=== PATIENT | male | born 1980 | race Two or more races ===

== ENCOUNTER 2025-09-10 11:59 | Emergency (ER) | payer SELFPAY ==
[~2025-09-10] VITALS: Ht 152.4 cm; Wt 81.0 kg
--- NOTE | 2025-09-10 12:15 | ECG ---
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
[2025-09-10 12:30] VITALS: PULSE 91; RESP 15; O2SAT 98
[2025-09-10] MEDS: SODIUM CHLORIDE 0.9% 3,000 ML IV ONE (12:37)
[2025-09-10] MEDS: LORazepam 2MG/ML-1ML VIAL IV ONE ×2 (12:42→14:30)
[2025-09-10] MEDS: THIAMINE 100mg/ml INJ (200mg/2ml VIAL) IV ONE (12:42)
[2025-09-10] MEDS: ONDANSETRON HCL 4 MG/2 ML VIAL IV ONE (12:43)
--- NOTE | 2025-09-10 13:16 | ED.PDOC ---
Psychiatric HPI Comments This is a 45-year-old male who presents to the ED with a chief complaint of alcohol withdrawals. Patient states he has been binge drinking for the past x4 weeks, drinking beer and Tequila. Patient reports his last drink was last night. Patient also reports he has had a decreased appetite the past 2 weeks and is currently feeling anxious. Upon evaluation, patient is visibly shaking. Patient has no further complaints at this time and otherwise denies further associated symptoms of dizziness, any visual or auditory hallucinations, suicidal ideation, or homicidal ideation. Chief Complaint: Withdrawal Time Seen by MD: 12:20 Reviewed Notes: Medications, Allergies Information Source: Patient Mode of Arrival: Ambulatory Duration: Since onset Presents with: Anxiety, Alcohol Intoxication Associated signs and symptoms: Tremors Past Medical History PAST MEDICAL HISTORY: Denies Surgical History: Denies all surgeries Family History Family History: Unknown Social History Smoker: Non-Smoker Alcohol: Heavy Drugs: Denies Drug Use Lives In: Home Constitutional: denies: chills, diaphoresis, fatigue, fever, malaise, sweats, weakness, others EENTM: denies: blurred vision, double vision, ear bleeding, ear discharge, ear drainage, ear pain, ear ringing, eye pain, eye redness, hearing loss, mouth pain, mouth swelling, nasal discharge, nose bleeding, nose congestion, nose pain, photophobia, tearing, throat pain, throat swelling, voice changes, others Respiratory: denies: cough, hemoptysis, orthopnea, SOB at rest, shortness of breath, SOB with excertion, stridor, wheezing, others Cardiovascular: denies: chest pain, dizzy spells, diaphoresis, Dyspnea on exe rtion, edema, irregular heart beat, left arm pain, lightheadedness, palpitations, PND, syncope, others Gastrointestinal: denies: abdomen distended, abdominal pain, blood streaked bowels, constipated, diarrhea, dysphagia, difficulty swallowing, hematemesis, melena, nausea, poor appetite, poor fluid intake, rectal bleeding, rectal pain, vomiting, others Genitourinary: denies: burning, dysuria, flank pain, frequency, hematuria, incontinence, penile discharge, penile sore, pain, testicle pain, testicle swelling, urgency, others Neurological: reports: tremors; denies: dizziness, fainting, headache, left sided numbness, left sided weakness, numbness, paresthesia, pre-existing de ficit, right sided numbness, right sided weakness, seizure, speech problems, tingling, weakness, others Musculoskeletal: denies: back pain, gout, joint pain, joint swelling, muscle pain, muscle stiffness, neck pain, others Integumetry: denies: bruises, change in color, change in hair/nails, dryness, laceration, lesions, lumps, rash, wounds, others Allergic/Immunocompromised: denies: Difficulty Healing, Frequent Infections, Hives, Itching, others Hematologic/Lymphatic: denies: anemia, blood clots, easy bleeding, easy bruising, swollen glands, others Endocrine: denies: excessive hunger, excessive sweating, excessive thirst, excessive urination, flushing, intolerance to cold, intolerance to heat, unexplained weight gain, unexplained weight loss, others Psychiatric: reports: anxiety, others (ETOH intoxication); denies: bipolar disorder, depression, hopeless, panic disorder, schizophrenia, sleepless, suicidal All Other Systems: Reviewed and Negative Physical Exam General Appearance: Moderate Distress HEENT: Normal ENT Inspection, Pharynx Normal, TMs Normal Neck: Full Range of Motion, Non-Tender, Normal, Normal Inspection Respiratory: Chest Non-Tender, Lungs Clear, No Accessory Muscle Use, No Respiratory Distress, Normal Breath Sounds Cardiovascular: No Edema, No JVD, No Murmur, No Gallop, Normal Peripheral Pulses, Regular Rate/Rhythm Breast Exam: Deferred Gastrointestinal: No Organomegaly, Non Tender, No Pulsatile Mass, Normal Bowel Sounds, Soft Genitalia: Deferred Pelvic: Deferred Rectal: Deferred Extremities: No calf tenderness, Normal capillary refill, Normal inspection, No rmal range of motion, Non-tender, No pedal edema Musculoskeletal : Apperance: Normal Neurologic: Alert, 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 Was a procedure done?: No Psych Differential Dx Psych. Differential Dx: Anxiety Intoxication Differential Dx: Alcohol Withdraw Syndrome X-Ray, Labs, Meds, VS Vital Signs Date Time Temp Pulse Resp B/P (MAP) Pulse Ox O2 Delivery O2 Flow Rate FiO2 09/10/25 14:20 91 15 98 Room Air* 0 21 09/10/25 13:16 120 09/10/25 12:30 91 15 98 Room Air* 0 21 09/10/25 12:30 98.1 91 15 138/88 (105) 98 98.1 09/10/25 12:06 120 09/10/25 12:04 98.7 121 24 139/100 95 98.7 Lab Test 09/10/25 14:13 09/10/25 12:47 Range/Units Urine Color Colorless Yellow Urine Clarity Clear Clear Urine pH 8.0 5.0-9.0 Urine Specific [place] 1.008 1.001-1.035 Urine Protein Negative Negative Urine Ketones Negative Negative Urine Blood Negative Negative /uL Urine Nitrite Negative Negative Urine Bilirubin Negative Negative Urine Urobilinogen Normal Negative mg/dL Urine Leukocyte Esterase Negative Negative /uL Urine RBC 1 0 - 3 /hpf Urine Microscopic WBC < 1 0-3 /HPF Urine Squamous Epithelial Cells None seen <5 /hpf Urine Bacteria None seen None Seen /hpf Urine Glucose Normal Normal mg/dL Urine Opiates Screen Neg NEGATIVE Urine Fentanyl Screen Neg NEGATIVE Urine Barbiturates Screen Pos NEGATIVE Urine Phencyclidine Screen Neg NEGATIVE Urine Amphetamines Screen Neg NEGATIVE Urine Benzodiazepines Screen Pos NEGATIVE Urine Cocaine Screen Neg NEGATIVE Urine Cannabinoids Screen Neg NEGATIVE Sodium Level 141 136-145 mmol/L Potassium Level 3.6 3.5-5.1 mmol/L Chloride Level 103 98-107 mmol/L Carbon Dioxide Level 25 20-31 mmol/L Anion Gap 13 5-15 Blood Urea Nitrogen < 5 L 9-23 mg/dL Creatinine 0.63 L 0.700-1.30 mg/dL Glomerular Filtration Rate Calc 120 >90 mL/min BUN/Creatinine Ratio 7.9 L 10.0-20.0 Serum Glucose 109 H 74-106 mg/dL Calcium Level 8.6 L 8.7-10.4 mg/dL Plasma/Serum Blood Alcohol 180.5 H <10 mg/dL Current Medications Medications (Trade) Dose Ordered Sig/Kathrin Route Start Time Stop Time Status Last Admin Sodium Chloride 3,000 ml @ 1,000 mls/hr Q3H ONCE IV 09/10/25 12:30 09/10/25 15:29 09/10/25 12:37 Thiamine HCl 100 mg ONCE ONCE IV 09/10/25 12:30 09/10/25 12:31 DC 09/10/25 12:42 Lorazepam (Ativan Inj) 1 mg ONCE ONCE IV 09/10/25 12:30 09/10/25 12:31 DC 09/10/25 12:42 Ondansetron HCl (Zofran) 4 mg ONCE ONCE IV 09/10/25 12:30 09/10/25 12:31 DC 09/10/25 12:43 Patient alert. Blood alcohol level elevated. He is withdrawing. Establish intravenous access. Was given fluids. Was given Ativan. Was given Zofran. He was given thiamine. Continue fluids. No acute process. Explained to the patient. Was told to follow up with his primary care physician. Was told to come back if there is any problem. Time of 1ST Reevaluation: 14:19 Reevaluation 1ST: Unchanged Patient Education/Counseling: Diagnosis, Treatment Family Education/Counseling: No Family Present Departure 1 Departure Time of Disposition: 14:48 Impression: Primary Impression: Alcohol abuse Disposition: 01 HOME / SELF CARE / HOMELESS Condition: Good Discharged With: Self Critical Care Note Critical Care Time?: No Stability Stability form required: No Heart Score Heart Score: Heart Score Response (Comments) Value History Slightly Suspicious 0 EKG Normal 0 Age <45 0 Risk Factors No known risk factors 0 Troponin N/A 0 Total 0 I personally scribed for INDRA ANTONIO MD ([email or web address]) on 09/10/25 at 13:16. Electronically submitted by Belkys Stiles ([facility]). I personally scribed for INDRA ANTONIO MD ([email or web address]) on 09/10/25 at 13:19. Electronically submitted by Belkys Stiles ([facility]). INDRA ANTONIO MD Sep 10, 2025 13:16
[2025-09-10 13:24] LABS: Chloride 103 mmol/L (98-107); Potassium 3.6 mmol/L (3.5-5.1); Sodium 141 mmol/L (136-145)
[2025-09-10 13:25] LABS: Anion Gap 13 (5-15); Carbon Dioxide 25 mmol/L (20-31)
[2025-09-10 13:31] LABS: BUN/Creatinine Ratio 7.9 (10.0-20.0); Blood Urea Nitrogen < 5 mg/dL (9-23); Calcium 8.6 mg/dL (8.7-10.4); Glucose 109 mg/dL (74-106)
[2025-09-10 14:20] VITALS: PULSE 91; RESP 15; O2SAT 98
[2025-09-10 14:22] LABS: Urine Protein, UAD Negative (Negative)
[2025-09-10 14:37] LABS: Barbiturate Scree,Urine Pos (NEGATIVE); Benzodiazephine Screen, Urine Pos (NEGATIVE)
[2025-09-10 14:39] LABS: Amphetamine Screen, Urine Neg (NEGATIVE); Cannabinoid Screen, Urine Neg (NEGATIVE); Cocaine Screen, Urine Neg (NEGATIVE); Opiate Scree,Urine Neg (NEGATIVE); Phencyclidine Screen, Urine Neg (NEGATIVE)
[2025-09-10 16:30] VITALS: BP 141/73; PULSE 97; RESP 18; TEMP 98.3; O2SAT 94
== END 2025-09-10 16:50 | disposition home or self-care (01) ==
LOC: ER 11:59
DX: F10.229 Alcohol dependence with intoxication, unspecified (principal); Y90.6 Blood alcohol level of 120-199 mg/100 ml
CPT/HCPCS: 36415; 80048; 80307; 80320; 81001; 93005; 96361; 96374; 96375; 96376; 99285; J2060; J2405; J3411; J7030

== ENCOUNTER 2025-10-30 16:26 | Emergency (ER) | payer MEDICAID, OTHER ==
[~2025-10-30] VITALS: Ht 167.6 cm; Wt 81.8 kg
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
[2025-10-30] MEDS: LORazepam 2MG/ML-1ML VIAL IV ONE (16:47)
[2025-10-30] MEDS: SODIUM CHLORIDE 0.9% 1,000 ML IV ONE (16:47)
[2025-10-30 16:50] VITALS: PULSE 101; RESP 15; TEMP 98.3; O2SAT 95
[2025-10-30 16:54] LABS: Hematocrit 45.8 % (41.0-53.0); Hemoglobin 15.5 g/dL (13.5-17.5); Mean Corpuscular Hemoglobin 32.0 pg (28.0-32.0); Mean Corpuscular Volume 94.2 fL (80.0-100.0); Nucleated Red Blood Cells % 0.0 %
[2025-10-30 17:02] LABS: Anion Gap 14 (5-15); Carbon Dioxide 25 mmol/L (20-31); Potassium 3.7 mmol/L (3.5-5.1)
[2025-10-30 17:03] LABS: Calcium 9.9 mg/dL (8.7-10.4)
[2025-10-30 17:08] LABS: BUN/Creatinine Ratio 8.3 (10.0-20.0)
--- NOTE | 2025-10-30 17:25 | DVH ---
EXAM: CT HEAD WITHOUT CONTRAST INDICATION: seizure TECHNIQUE: CT of the head without intravenous contrast. Radiation Dose : 1. Head: CT Dose: CTDI volume is 59.3 mGy. Dose-length product is 1049.86 mGy*cm The dose indicators for CT are the volume Computed Tomography (CT) Dose Index (CTDIvol) and the Dose Length Product (DLP), and are measured in units of mGy and mGy-cm, respectively. These indicators are not patient dose, but values generated from the CT scanner acquisition factors. The report includes radiation exposure data for exposures received during this examination. COMPARISON: None FINDINGS: There is no evidence of acute intracranial hemorrhage, extra-axial collection, mass effect, midline shift, herniation or hydrocephalus. The ventricles, sulci and cisterns are age appropriate. The tobias-white differentiation is intact. The visualized paranasal sinuses and mastoid air cells are clear. The surrounding soft tissues and osseous structures are unremarkable. IMPRESSION: No acute intracranial abnormality. Radiation optimization: All CT scans at this facility use at least one of these dose optimization techniques: automated exposure control mA and/or kV adjustment per patient size (includes targeted exams where dose is matched to clinical indication) or iterative reconstruction.
[2025-10-30 17:30] LABS: Blood Urea Nitrogen 9 mg/dL (9-23); Chloride 95 mmol/L (98-107); Glucose 169 mg/dL (74-106); Sodium 134 mmol/L (136-145)
[2025-10-30] MEDS ORDERED: CHL10C PO (17:50)
[2025-10-30 18:22] VITALS: BP 143/89; RESP 22; O2SAT 95
[2025-10-30 18:25] VITALS: PULSE 75
== END 2025-10-30 18:30 | disposition home or self-care (01) ==
LOC: EDBD 16:26 → EDUNIT# 16:26 → ER 16:26
DX: F10.230 Alcohol dependence with withdrawal, uncomplicated (principal); R56.9 Unspecified convulsions; Z90.49 Acquired absence of other specified parts of digestive tract; Y90.9 Presence of alcohol in blood, level not specified
CPT/HCPCS: 36415; 70450; 80048; 80320; 82947; 85025; 96361; 96374; 99285; J2060; J7030; 82962